=== PATIENT | female | born 1995 | race Caucasian/White ===

== ENCOUNTER 2021-04-09 13:39 | Emergency (ER) | payer OTHER, MEDICAID ==
[~2021-04-09] VITALS: Ht 172.7 cm; Wt 70.7 kg
--- NOTE | 2021-04-09 14:11 | NUR ---
Pt able to given UA sample before going to room.
--- NOTE | 2021-04-09 14:20 | NUR ---
soil tester completed and pt changed into gown with warm blanket provided. UA sample sent to lab, awaiting orders. Call light in reach and spouse arrived at bedside.
--- NOTE | 2021-04-09 14:25 | NUR ---
PA at bedside for exam.
--- NOTE | 2021-04-09 14:42 | NUR ---
Lab at bedside for draw.
[2021-04-09 14:52] LABS: BASOPHILS % (AUTO) 1 % (0-1); EOSINOPHILS % (AUTO) 1 % (1-7); LYMPHOCYTES % (AUTO) 20 % (22-44); MEAN CORPUSCULAR HEMOGLOBIN 36.2 pg (27.0-34.8); MEAN CORPUSCULAR HGB CONC 34.7 g/dL (32.4-35.8); MEAN PLATELET VOLUME 7.5 fL (7.4-10.4); MONOCYTES % (AUTO) 7 % (2-9); NEUTROPHILS % (AUTO) 72 % (42-75); PLATELET COUNT 215 x10^3/uL (130-400); RED BLOOD COUNT 3.51 x10^6/uL (3.82-5.3); RED CELL DISTRIBUTION WIDTH 12.4 % (9.6-15.2)
[2021-04-09 14:53] LABS: MD NO
[2021-04-09] MEDS ORDERED: ACETAMINOPHEN 325 MG TABLET PO ONE (15:00)
[2021-04-09 15:04] LABS: ALBUMIN 3.2 g/dL (3.4-5.0); ANION GAP 7 mmol/L (5-15); CALCIUM 8.5 mg/dL (8.5-10.1); CHLORIDE 109 mmol/L (98-107)
[2021-04-09 15:10] LABS: ALANINE AMINOTRANSFERASE 13 U/L (12-78); ALKALINE PHOSPHATASE 34 U/L (45-117); BILIRUBIN,TOTAL 0.1 mg/dL (0.2-1.0); CREATININE 0.66 mg/dL (0.55-1.02); TOTAL PROTEIN 6.6 g/dL (6.4-8.2); TROPONIN I < 0.015 ng/mL (0.000-0.045)
--- NOTE | 2021-04-09 15:43 | NUR ---
PXR being done now. Addendum: 04/09/21 at 1543 by [email or web address] PCXR
[2021-04-09 16:15] VITALS: BP 106/59
== END 2021-04-09 16:19 | disposition home or self-care (01) ==
LOC: ED 16:13
DX: O26.892 Other specified pregnancy related conditions, second trimester (principal); M54.6 Pain in thoracic spine; M62.830 Muscle spasm of back; R94.31 Abnormal electrocardiogram [ECG] [EKG]; R06.02 Shortness of breath; Z3A.18 18 weeks gestation of pregnancy
CPT/HCPCS: 36415; 71045; 80053; 84484; 85025; 85379; 93005; 99285

== ENCOUNTER 2021-05-07 09:55 | Outpatient (CLI) | payer OTHER, MEDICAID ==
[~2021-05-07] VITALS: Ht 172.7 cm; Wt 71.3 kg
[2021-05-07 10:01] VITALS: BP 117/73
[2021-05-07 10:16] LABS: MICROSCOPIC NOT IND
== END 2021-05-07 10:52 | disposition home or self-care (01) ==
LOC: LDOP 09:55
PROVIDERS: ATTEND Obstetrics & Gynecology
DX: O26.892 Other specified pregnancy related conditions, second trimester (principal); R10.9 Unspecified abdominal pain; Z3A.20 20 weeks gestation of pregnancy
CPT/HCPCS: 81003; 99211; G0463

== ENCOUNTER 2021-06-21 09:37 | Outpatient (CLI) | payer OTHER, MEDICAID ==
[~2021-06-21] VITALS: Ht 172.7 cm; Wt 72.7 kg
[2021-06-21 09:46] VITALS: BP 120/66
[2021-06-21 10:59] LABS: MICROSCOPIC NOT IND
[2021-06-21 11:14] LABS: CLUE CELLS NONE SEEN (NONE SEEN); WET PREP WBCS FEW (FEW)
[2021-06-21] MEDS ORDERED: PREN1COM6 PO (11:53)
[2021-06-21] MEDS ORDERED: AMOX1TAB12 PO (11:55)
[2021-06-21] MEDS ORDERED: MICO44CM VG (11:56)
[2021-06-21] MEDS ORDERED: ENOX40SY4 SQ (12:03)
== END 2021-06-21 12:20 | disposition home or self-care (01) ==
LOC: LDOP 09:37
PROVIDERS: ATTEND Obstetrics & Gynecology
DX: O26.892 Other specified pregnancy related conditions, second trimester (principal); R10.2 Pelvic and perineal pain; Z3A.26 26 weeks gestation of pregnancy
CPT/HCPCS: 81003; 84112; 87086; 87106; 87210; 87808; 99211; G0463

== ENCOUNTER → 2021-06-29 | Outpatient (CLI) | payer OTHER, MEDICAID ==
[~2021-06-29] MED LIST: AMOX1TAB12 PO; ENOX40SY4 SQ; MICO44CM VG; PREN1COM6 PO
[2021-06-29 08:26] LABS: BASOPHILS % (AUTO) 1 % (0-1); EOSINOPHILS % (AUTO) 0 % (1-7); LYMPHOCYTES % (AUTO) 15 % (22-44); MEAN CORPUSCULAR HGB CONC 34.4 g/dL (32.4-35.8); MEAN PLATELET VOLUME 7.4 fL (7.4-10.4); MONOCYTES % (AUTO) 4 % (2-9); NEUTROPHILS % (AUTO) 80 % (42-75); PLATELET COUNT 220 x10^3/uL (130-400); RED BLOOD COUNT 3.57 x10^6/uL (3.82-5.3); RED CELL DISTRIBUTION WIDTH 12.7 % (9.6-15.2)
== END | disposition home or self-care (01) ==
LOC: LAB 07:15
PROVIDERS: ATTEND Obstetrics & Gynecology
DX: O09.892 Supervision of other high risk pregnancies, second trimester (principal); Z3A.00 Weeks of gestation of pregnancy not specified
CPT/HCPCS: 36415; 82950; 85025; 86592; 87806; G0475

== ENCOUNTER → 2021-07-03 | Outpatient (CLI) | payer OTHER, MEDICAID | END | disposition home or self-care (01) | LOC: RAD 16:14 | PROVIDERS: ATTEND Physician Assistant | DX: M79.605 Pain in left leg (principal) ==

== ENCOUNTER 2021-08-21 16:25 | Outpatient (CLI) | payer OTHER, MEDICAID ==
[~2021-08-21] VITALS: Ht 172.7 cm; Wt 80.9 kg
== END 2021-08-21 20:48 | disposition home or self-care (01) ==
LOC: LDOP 16:25
PROVIDERS: ATTEND Obstetrics & Gynecology
DX: O09.93 Supervision of high risk pregnancy, unspecified, third trimester (principal); Z3A.35 35 weeks gestation of pregnancy